=== PATIENT | female | born 1945 | race Caucasian/White ===

== ENCOUNTER 2024-01-17 14:06 | Emergency (ER) | payer OTHER, MEDICARE ==
[2024-01-17 14:23] VITALS: RESP 18
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
[2024-01-17] MEDS: DIPH,PERTUS(ACELL)TETVAC-LF 0.5 ML VIAL IM ONE (15:28)
[2024-01-17] MEDS: HYDROmorphone 1 MG/ML 1 ML SYRINGE IM STA (15:29)
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
[2024-01-17 16:48] VITALS: BP 126/75; PULSE 80; TEMP 97.6
== END 2024-01-17 16:48 | disposition home or self-care (01) ==
LOC: EC 14:06
DX: V89.2XXA Person injured in unspecified motor-vehicle accident, traffic, initial encounter
CPT/HCPCS: 90471; 90715; 96372; 99284